=== PATIENT | female | born 1960 | race Caucasian/White ===

== ENCOUNTER 2016-09-07 07:54 | Emergency (ER) | payer OTHER ==
[~2016-09-07] VITALS: Ht 162.6 cm; Wt 53.5 kg
[~2016-09-07 07:54] MED LIST: AZIT250T PO; GUAISYP4 PO; LORA-741 PO
[2016-09-07] MEDS ORDERED: SODIUM CHLORIDE 0.9% 1000ML 1,000 ML IV STA (07:57)
[2016-09-07 08:00] VITALS: TEMP 36.4; Ht 162.6 cm; Wt 53.5 kg
[2016-09-07] MEDS ORDERED: FAMOTIDINE IV INJ 20 MG in DEXTROSE 5% 100ML 100 ML IV STA (08:04)
[2016-09-07] MEDS ORDERED: HYDROmorphone INJ 0.5 MG/0.5 ML SYR IV STA ×2 (08:04→09:06)
[2016-09-07] MEDS ORDERED: ONDANSETRON INJ 2 MG/ML 2 ML VIAL IV STA (08:04)
[2016-09-07 08:17] LABS: BASO ABS # 0.06 K/uL (0-0.2); COMPLETE YES; EOS % 5.4 %; HEMATOCRIT 40.5 % (37-47); IG% 0.3 %; LYMPH % 39.5 %; MEAN CELL VOLUME 89.4 fL (80-100); MEAN CORPUSCULAR HEMOGLOBIN 29.4 pg (25-34); MEAN CORPUSCULAR HGB CONC 32.8 g/dl (32-36); MEAN PLATELET VOLUME 9.5 fL (7.4-10.4); MONO % 8.7 %; NEUT % 45.1 %; PLATELET COUNT 293 K/uL (130-400); RED BLOOD COUNT 4.53 M/uL (4.2-5.4); WHITE BLOOD COUNT 6.07 K/uL (4.8-10.8)
[2016-09-07] MEDS ORDERED: TRAZ50TA35 PO (08:23)
[2016-09-07] MEDS ORDERED: DIPH1TAB PO (08:24)
[2016-09-07] MEDS ORDERED: SIME80CH PO (08:24)
[2016-09-07 08:34] LABS: ALT/SGPT 18 U/L (12-78); BLOOD UREA NITROGEN 16 mg/dl (7-18); BUN/CREATININE RATIO 15.6 (10-20); CALCIUM 8.9 mg/dl (8.5-10.1); CARBON DIOXIDE 23 mmol/L (21-32); CHLORIDE 106 mmol/L (98-107); GLUCOSE 168 mg/dl (70-99); POTASSIUM 3.5 mmol/L (3.5-5.1); SODIUM 142 mmol/L (136-145)
[2016-09-07 08:37] LABS: ALKALINE PHOSPHATASE 60 U/L (45-117); AST/SGOT 12 U/L (15-37)
[2016-09-07] MEDS ORDERED: PROMETHAZINE HCL INJ 25 MG in SODIUM CHLORIDE 0.9% 50ML 50 ML IV STA (08:59)
--- NOTE | 2016-09-07 09:08 | DIAGNOSTIC IMAGING REPORT ---
CHEST 2 VIEWS ROUTINE CLINICAL HISTORY: UPPER ABD/CHEST PAIN dyspnea COMPARISON STUDY: 03/25/2015 FINDINGS: The bones soft tissues and hemidiaphragms are normal. The cardiomediastinal silhouette is normal. The lungs are clear. The pulmonary vasculature is normal. IMPRESSION: Negative chest. Electronically signed by: Erwin Baptiste M.D. 09/07/2016 9:07 AM Dictated Date/Time: 09/07/2016 9:07 AM
--- NOTE | 2016-09-07 09:09 | DIAGNOSTIC IMAGING REPORT ---
KUB CLINICAL HISTORY: UPPER ABD/CHEST PAIN pain COMPARISON STUDY: No previous studies for comparison. FINDINGS: The soft tissues, psoas shadows, renal outlines and intestinal gas pattern appear normal. There is no evidence for bowel obstruction. No abnormal abdominal calcifications are seen. IMPRESSION: Normal study. Electronically signed by: Erwin Baptiste M.D. 09/07/2016 9:07 AM Dictated Date/Time: 09/07/2016 9:07 AM
[2016-09-07] MEDS ORDERED: OPTIRAY 320 IV PRN (09:15)
[2016-09-07] MEDS ORDERED: PANTOprazole INJ 80 MG in DEXTROSE 5% 100ML 100 ML IV ONE (09:30)
[2016-09-07] MEDS ORDERED: HYDROmorphone INJ 0.5 MG/0.5 ML SYR IV PRN (09:30)
--- NOTE | 2016-09-07 09:38 | DIAGNOSTIC IMAGING REPORT ---
Study: CT chest combination HISTORY: Pain FINDINGS: Normal caliber thoracic aorta. No evidence for aneurysm or dissection. Pulmonary arterial vasculature enhances appropriately. There is no evidence for pulmonary embolus. Lungs are considered clear. Minimal chronic pleural reactive change right base. IMPRESSION: Normal study Electronically signed by: Erwin Baptiste M.D. 09/07/2016 9:37 AM Dictated Date/Time: 09/07/2016 9:33 AM
[2016-09-07 10:24] LABS: URINE APPEARANCE CLEAR (CLEAR); URINE BILIRUBIN NEG (NEG); URINE COLOR YELLOW; URINE NITRITE NEG (NEG); URINE PH 7.5 (4.5-7.5); URINE SPECIFIC GRAVITY > 1.045 (1.000-1.030); UROBILINOGEN NEG (NEG)
[2016-09-07 10:25] LABS: MANUAL MICROSCOPIC REQUIRED? NO; REVIEW REQ? NO
--- NOTE | 2016-09-07 11:18 | DIAGNOSTIC IMAGING REPORT ---
Right upper quadrant ultrasound GALLBLADDER-ABD LIMITED CLINICAL HISTORY: EVAL UPPER ABD/LOWER CHEST/BACK PAIN fever. Pain. TECHNIQUE: Ultrasound COMPARISON STUDY: None FINDINGS: Gallbladder is normal. Common bile duct 5 mm. Liver is uniform. Trace perihepatic free fluid. Pancreas and right kidney unremarkable. IMPRESSION: Trace free fluid adjacent to the superior margin of the liver. Study is otherwise normal. Electronically signed by: Erwin Baptiste M.D. 09/07/2016 11:17 AM Dictated Date/Time: 09/07/2016 11:15 AM
[2016-09-07 11:23] VITALS: BP 102/42; PULSE 61; O2SAT 98
[2016-09-07] MEDS ORDERED: PANT40TA PO (11:43)
[2016-09-07] MEDS ORDERED: ONDA4TAB10 SL (11:43)
[2016-09-07] MEDS ORDERED: OXYC1TAB3 PO (11:43)
--- NOTE | 2016-09-07 17:23 | EMERGENCY ROOM VISIT NOTE ---
History First contact with patient: 07:57 Chief Complaint: ABDOMINAL PAIN Stated Complaint: ABDOMINAL PAIN INTO BACK,VOMITING History of Present Illness The patient is a 55 year old female who presents to the Emergency Room with complaints of severe upper central abdominal pain radiating through to the back. The patient reports that she did not feel right yesterday with some mild nausea and epigastric discomfort. She thought it was indigestion, and took some home medications without relief. When she awoke this morning, she reported this pain was severe. When asked if it feels like a tearing sensation , the patient denies. She does have some mild shortness of breath. She denies chest tightness, neck pain or headache. He rates her discomfort a 9 out of 10. She is concerned that it is her gallbladder or pancreas, although she has never had a history of pancreatitis. She has had her gallbladder evaluated before in the past by Dr. Begum. The patient reports that she vomited her coffee this morning. Review of Systems HEENT: Denies dizziness, visual problems, hearing loss, tinnitus. Denies difficulty swallowing or oral lesions. PULMONARY: Denies cough, sputum production or hemoptysis. CARDIOVASCULAR: Denies recent palpitations, dyspnea on exertion, orthopnea or peripheral edema. GASTROINTESTINAL: Denies diarrhea or constipation, otherwise see history of present illness. GENITOURINARY: Denies dysuria, frequency, urgency or nocturia. NEUROLOGIC: Denies history of epilepsy, CVA, TIA or chronic headaches. MUSCULOSKELETAL: Denies history of joint tenderness/swelling. SKIN: Denies rashes or lesions. PSYCHIATRIC: Denies history of depression or mental illness. ENDOCRINE: Denies history of diabetes or thyroid disorders. Past Medical/Surgical History Medical Problems: (1) No pertinent past medical history Family History Patient reports no known family medical history. Social History Smoking Status: Never Smoker Alcohol Use: occasionally Drug Use: none Occupation Status: employed Current/Historical Medications Scheduled Diphenhydramine Hcl (Benadryl Allergy), 25 MG PO HS Ondasetron Odt (Zofran Odt), 4 MG SL Q6H Pantoprazole (Protonix), 40 MG PO DAILY Simethicone (Gas-X), 1 TAB PO DIRECTED Trazodone Hcl (Trazodone), 50 MG PO HS Scheduled PRN Lorazepam (Ativan), 0.5-1 MG PO HS PRN for Anxiety Oxycodone Ir (Roxicodone Ir), 1-2 TAB PO Q4H PRN for Pain Allergies Coded Allergies: No Known Allergies (Unverified , 09/07/16) Physical Exam Vital Signs Date Time Temp Pulse Resp B/P Pulse Ox O2 Delivery O2 Flow Rate FiO2 09/07/16 11:23 61 16 102/42 98 Room Air 09/07/16 09:27 68 22 134/65 100 09/07/16 08:37 53 09/07/16 08:00 36.4 56 24 140/71 100 Room Air Physical Exam CONSTITUTIONAL: Healthy and well nourished. Alert and oriented X 3 with positive affect. She appears in moderately severe discomfort. HEENT: Normocephalic, atraumatic. Pupils equal, round and reactive. Ears and nares are clear. No scleral icterus or conjunctival pallor. NECK: Full active range of motion without discomfort. No JVD or carotid bruits. RESPIRATORY: Clear to auscultation bilaterally with no wheezing, crackles, rhonchi or stridor. CARDIOVASCULAR: Regular rate and rhythm with no murmurs, rubs or gallops. GASTROINTESTINAL: Bowel sounds present in all quadrants. Patient has notable epigastric tenderness to palpation. Negative CVA tenderness. No abdominal rigidity, guarding or rebound. No bruits on auscultation, and no palpable pulsatile masses of the abdomen. MUSCULOSKELETAL: Full range of motion of all joints without discomfort. INTEGUMENTARY: No rash or other significant dermatologic conditions noted. HEMATOLOGIC: No ecchymosis or petechiae noted. NEUROLOGIC: No focal neurologic deficits noted. Medical Decision & Procedures ER Provider Diagnostic Interpretation: My interpretation of an ECG shows a normal sinus rhythm of [address] elevation or other conduction abnormalities. My interpretation of a two-view chest x-ray does not show any consolidations, pneumothorax or widened mediastinum. Radiologist report is as follows: CHEST 2 VIEWS ROUTINE CLINICAL HISTORY: UPPER ABD/CHEST PAIN dyspnea COMPARISON STUDY: 03/25/2015 FINDINGS: The bones soft tissues and hemidiaphragms are normal. The cardiomediastinal silhouette is normal. The lungs are clear. The pulmonary vasculature is normal. IMPRESSION: Negative chest. My interpretation of the KUB does not show any subdiaphragmatic air or obstructive pattern. Radiologist report is as follows: KUB CLINICAL HISTORY: UPPER ABD/CHEST PAIN pain COMPARISON STUDY: No previous studies for comparison. FINDINGS: The soft tissues, psoas shadows, renal outlines and intestinal gas pattern appear normal. There is no evidence for bowel obstruction. No abnormal abdominal calcifications are seen. IMPRESSION: Normal study. A CT dissection study does not show any evidence for dissection. Radiologist report is as follows: Study: CT chest combination HISTORY: Pain FINDINGS: Normal caliber thoracic aorta. No evidence for aneurysm or dissection. Pulmonary arterial vasculature enhances appropriately. There is no evidence for pulmonary embolus. Lungs are considered clear. Minimal chronic pleural reactive change right base. IMPRESSION: Normal study Gallbladder ultrasound shows no evidence for cholecystitis, gallbladder wall thickening or common bile duct dilatation. Radiologist report is as follows: Right upper quadrant ultrasound GALLBLADDER-ABD LIMITED CLINICAL HISTORY: EVAL UPPER ABD/LOWER CHEST/BACK PAIN fever. Pain. TECHNIQUE: Ultrasound COMPARISON STUDY: None FINDINGS: Gallbladder is normal. Common bile duct 5 mm. Liver is uniform. Trace perihepatic free fluid. Pancreas and right kidney unremarkable. IMPRESSION: Trace free fluid adjacent to the superior margin of the liver. Study is otherwise normal. Laboratory Results 09/07/16 08:02 Red Blood Count 4.53, Mean Corpuscular Volume 89.4, Mean Corpuscular Hemoglobin 29.4, Mean Corpuscular Hemoglobin Concent 32.8, Mean Platelet Volume 9.5, Neutrophils (%) (Auto) 45.1, Lymphocytes (%) (Auto) 39.5, Monocytes (%) (Auto) 8.7, Eosinophils (%) (Auto) 5.4, Basophils (%) (Auto) 1.0, Neutrophils # (Auto) 2.73, Lymphocytes # (Auto) 2.40, Monocytes # (Auto) 0.53, Eosinophils # (Auto) 0.33, Basophils # (Auto) 0.06 09/07/16 08:02 Test 09/07/16 08:02 09/07/16 08:12 09/07/16 10:07 White Blood Count 6.07 K/uL (4.8-10.8) Red Blood Count 4.53 M/uL (4.2-5.4) Hemoglobin 13.3 g/dL (12.0-16.0) Hematocrit 40.5 % (37-47) Mean Corpuscular Volume 89.4 fL (80-100) Mean Corpuscular Hemoglobin 29.4 pg (25-34) Mean Corpuscular Hemoglobin Concent 32.8 g/dl (32-36) Platelet Count 293 K/uL (130-400) Mean Platelet Volume 9.5 fL (7.4-10.4) Neutrophils (%) (Auto) 45.1 % Lymphocytes (%) (Auto) 39.5 % Monocytes (%) (Auto) 8.7 % Eosinophils (%) (Auto) 5.4 % Basophils (%) (Auto) 1.0 % Neutrophils # (Auto) 2.73 K/uL (1.4-6.5) Lymphocytes # (Auto) 2.40 K/uL (1.2-3.4) Monocytes # (Auto) 0.53 K/uL (0.11-0.59) Eosinophils # (Auto) 0.33 K/uL (0-0.5) Basophils # (Auto) 0.06 K/uL (0-0.2) RDW Standard Deviation 41.4 fL (36.4-46.3) RDW Coefficient of Variation 12.7 % (11.5-14.5) Immature Granulocyte % (Auto) 0.3 % Immature Granulocyte # (Auto) 0.02 K/uL (0.00-0.02) Anion Gap 13.0 mmol/L (3-11) Est Creatinine Clear Calc Drug Dose 53.7 ml/min Estimated GFR () 73.5 Estimated GFR (Non- 63.4 BUN/Creatinine Ratio 15.6 (10-20) Calcium Level 8.9 mg/dl (8.5-10.1) Total Bilirubin 0.4 mg/dl (0.2-1) Direct Bilirubin < 0.1 mg/dl (0-0.2) Aspartate Amino Transf (AST/SGOT) 12 U/L (15-37) Alanine Aminotransferase (ALT/SGPT) 18 U/L (12-78) Alkaline Phosphatase 60 U/L (45-117) Total Protein 6.7 gm/dl (6.4-8.2) Albumin 3.9 gm/dl (3.4-5.0) Lipase 232 U/L (73-393) Bedside D-Dimer 156 ng/mlFEU (0-450) Bedside Troponin I 0.000 ng/ml (0-0.045) Urine Color YELLOW Urine Appearance CLEAR (CLEAR) Urine pH 7.5 (4.5-7.5) Urine Specific [place] > 1.045 (1.000-1.030) Urine Protein NEG (NEG) Urine Glucose (UA) NEG (NEG) Urine Ketones TRACE (NEG) Urine Occult Blood NEG (NEG) Urine Nitrite NEG (NEG) Urine Bilirubin NEG (NEG) Urine Urobilinogen NEG (NEG) Urine Leukocyte Esterase NEG (NEG) Urine Test NEG (NEG) The above labs were reviewed. Medications Administered Medications (Trade) Dose Ordered Sig/Antonia Route Start Time Stop Time Status Last Admin Dose Admin Sodium Chloride (Nss 1000ml) 1,000 ml @ 999 mls/hr Q1H1M STAT IV 09/07/16 07:57 09/07/16 08:57 DC 09/07/16 07:57 999 MLS/HR Hydromorphone HCl (Dilaudid Inj) 0.5 mg NOW STAT IV 09/07/16 08:04 09/07/16 08:07 DC 09/07/16 08:18 0.5 MG Ondansetron HCl 4 mg 4 mg NOW STAT IV 09/07/16 08:04 09/07/16 08:07 DC 09/07/16 08:19 4 MG Famotidine 20 mg/ Dextrose 102 ml @ 200 mls/hr ONE STAT IV 09/07/16 08:04 09/07/16 08:34 DC 09/07/16 08:28 200 MLS/HR Promethazine HCl/ Sodium Chloride (Phenergan Inj/ Nss 50ml) 51 ml @ 204 mls/hr NOW STAT IV 09/07/16 08:59 09/07/16 09:13 DC 09/07/16 09:06 204 MLS/HR Hydromorphone HCl 0.5 mg 0.5 mg NOW STAT IV 09/07/16 09:06 09/07/16 09:08 DC 09/07/16 09:12 0.5 MG Pantoprazole Sodium/Dextrose (Protonix Inj/D5 100ml) 120 ml @ 400 mls/hr NOW ONCE IV 09/07/16 09:30 09/07/16 09:47 DC 09/07/16 09:30 400 MLS/HR Procedure 1. IV hydration: The patient received a liter normal saline bolus 2. IV medications: The patient was initially administered Dilaudid 0.5 mg and Zofran 4 mg IVP. With persistent pain and nausea, she received an additional dose of Dilaudid 0.5 mg and Phenergan 25 mg IVP. She also received Pepcid 20 mg and Protonix 80 mg IVP. ED Course Patient history and physical exam were performed. Nurse's notes were reviewed. The patient appeared in significant discomfort. Vital signs were reviewed and normal. IV access was established, and labs were drawn. athletic monitor was applied. The patient was hydrated with normal saline, and received IV analgesics and antiemetics as discussed in the previous Procedure section. ECG was normal. Two-view chest x-ray and KUB were also normal. Review of labs showed no acute findings. D-dimer and troponin were normal. LFTs and lipase were normal. CBC and partial renal profile were normal. The patient still had significant discomfort, and it was felt that a dissection study was warranted. Dissection study of the chest was also normal. With the medications administered, the patient fell asleep and desaturated to 44 % on room air. The patient was awakened and her O2 saturations returned to the 90s. The patient had no other adverse events while in the emergency department. The case was further reviewed with Dr. Abdi, ED attending physician, who suggested performing a gallbladder ultrasound as well. If this is normal, he suggested hospitalist evaluation because of intractable abdominal pain. Gallbladder ultrasound was also normal. At this time, I did speak with the patient and regarding disposition. I do feel that the patient would benefit from gastroenterology evaluation. The patient elected to be discharged home with OxyIR, Zofran ODT and Protonix. She was encouraged to return to the emergency department for any uncontrollable pain , fever or other concerning symptoms. Otherwise, she was provided contact information for gastroenterology GI. The patient reports that she has not found a new family doctor since Dr. Begum left. The patient was happy with plan of care, and rated her discomfort a 2 out of 10 at the time of discharge. Medical Decision Many differential diagnoses were considered, given the patient's symptoms and pain level. Her workup today is not suggestive of aortic dissection, myocardial infarction, pulmonary embolus, pneumothorax, pancreatitis, cholecystitis, hepatitis, renal colic or surgical abdomen. The patient does not have any significant risk factors that were discovered on today's visit, but acute gastritis versus peptic ulcer disease was highly considered. The patient is afebrile and does not have any leukocytosis. She is hemodynamically stable. Biliary colic and esophageal spasm are also acute possibilities. Impression Primary Impression: Epigastric pain Departure Information Prescriptions Oxycodone Ir (Roxicodone Ir) 5 Mg Tab 1-2 TAB PO Q4H Y for Pain, #24 TAB For Initial Treatment Prov: Bertin Javier PA 09/07/16 Ondasetron Odt (ZOFRAN ODT) 4 Mg Tab 4 MG SL Q6H for Nausea, #10 TAB Prov: Bertin Javier PA 09/07/16 Pantoprazole (Protonix) 40 Mg Tab 40 MG PO DAILY for 30 Days, #30 TAB Prov: Bertin Javier PA 09/07/16 Referrals No Doctor, Assigned (PCP) Patient Instructions My [facility]
== END 2016-09-07 12:06 | disposition home or self-care (01) ==
LOC: C.EDB 07:55
DX: R10.13 Epigastric pain (principal); R11.0 Nausea; Z79.899 Other long term (current) drug therapy